=== PATIENT | male | born 1940 | race Caucasian/White ===

== ENCOUNTER 2022-12-04 15:26 | Emergency (ER) | payer BC ==
[~2022-12-04] VITALS: Ht 180.3 cm; Wt 81.2 kg
[2022-12-04 16:21] LABS: BASO % 0.3 % (0.0-1.0); EOS # 0.1 10*3/uL (0.0-0.4); EOS % 1.5 % (1.0-4.0); HEMATOCRIT 40.9 % (42.0-52.0); LYMPH # 1.9 10*3/uL (1.3-4.4); MEAN CELL VOLUME 94.2 fl (80.0-94.0); MEAN CORPUSCULAR HGB 29.7 pg (27.0-31.0); MEAN CORPUSCULAR HGB CONC 31.5 g/dl (33.0-37.0); MONO # 1.1 10*3/uL (0.1-1.0); MONO % 14.2 % (3.0-9.0); NEUT # 4.3 10*3/uL (2.3-7.9); NEUT % 58.2 % (47.0-73.0); PLATELET COUNT AUTOMATED 220 10*3/uL (130-400); RED BLOOD COUNT 4.34 10*6/uL (4.50-5.90); RED CELL DISTRI WIDTH 15.2 % (0-14.5); WHITE BLOOD COUNT 7.4 10*3/uL (4.8-10.8)
[2022-12-04 16:32] LABS: INTERNATIONAL NORM RATIO 1.7 (2.0-3.5)
[2022-12-04 16:41] LABS: BILIRUBIN Negative (Negative); BLOOD Negative (Negative); CLARITY Clear (Clear); COLOR Dark Yellow (Yellow); GLUCOSE Negative (Negative); KETONE Trace (Negative); LEUKO ESTERASE Negative (Negative); NITRITE Negative (Negative); SPECIFIC GRAVITY 1.025 (1.001-1.030)
[2022-12-04 16:46] LABS: ALKALINE PHOSPHATASE 60 U/L (46-116); BUN 16 mg/dl (9-23); CHLORIDE 108 mmol/L (98-107); LIPASE 65 U/L (12-53); POTASSIUM 4.3 mmol/L (3.4-5.1); SGPT/ALT 15 U/L (10-49)
[2022-12-04 17:07] LABS: CALCIUM OXALATE CRYSTALS Trace; MUCOUS 2+
[2022-12-04 17:08] LABS: BACTERIA 1+
[2022-12-04] MEDS ORDERED: ZYRTEC ALLERGY10 MG PO (18:21)
[2022-12-04] MEDS ORDERED: MYLANTA MAXIMU355 M1 PO (18:22)
[2022-12-04] MEDS ORDERED: CLARITIN10 MG PO (18:22)
[2022-12-04] MEDS ORDERED: MILK OF MA400 MG/5 M PO (18:23)
[2022-12-04] MEDS ORDERED: TUSSIN DM 10 M237 M1 PO (18:23)
[2022-12-04] MEDS ORDERED: DULCOLAX5 M1 PO (18:25)
[2022-12-04] MEDS ORDERED: IMODIUM A-D2 M2 PO (18:25)
[2022-12-04] MEDS ORDERED: TYLENOL325 M1 PO (18:26)
[2022-12-04] MEDS ORDERED: B COMPLEX1 EACH PO (18:27)
[2022-12-04] MEDS ORDERED: LOSARTAN POTAS100 M1 PO (18:27)
[2022-12-04] MEDS ORDERED: PRESERVISION A1 EAC3 PO (18:29)
[2022-12-04] MEDS ORDERED: NAMENDA10 MG PO (18:29)
[2022-12-04] MEDS ORDERED: PROSCAR5 M1 PO (18:31)
[2022-12-04] MEDS ORDERED: Coumadin5 MG PO (18:33)
[2022-12-04] MEDS ORDERED: LIPITOR20 MG PO (18:34)
[2022-12-04] MEDS ORDERED: FLOMAX0.4 MG PO (18:35)
[2022-12-04] MEDS ORDERED: BAZA ANTIFUNGA142 GM T (18:36)
[2022-12-04] MEDS ORDERED: DEPAKENE250 M1 PO (18:38)
[2022-12-04] MEDS ORDERED: RIVASTIGMINE T4.5 M1 PO (18:39)
[2022-12-04] MEDS ORDERED: VITAMIN D3125 MC1 PO (18:40)
== END 2022-12-04 17:45 | disposition admitted as inpatient to this hospital (09) ==
LOC: ED 15:26
PROVIDERS: Emergency Medicine
DX: F23 Brief psychotic disorder (principal); Z20.822 Contact with and (suspected) exposure to COVID-19

== ENCOUNTER 2022-12-04 18:01 | Inpatient (IN) | payer OTHER ==
[~2022-12-04] VITALS: Ht 175.2 cm; Wt 81.9 kg
[2022-12-04 17:46] VITALS: BP 104/82
[2022-12-04] MEDS ORDERED: ZYRTEC ALLERGY10 MG PO (18:21)
[2022-12-04] MEDS ORDERED: CLARITIN10 MG PO (18:22)
[2022-12-04] MEDS ORDERED: MYLANTA MAXIMU355 M1 PO (18:22)
[2022-12-04] MEDS ORDERED: TUSSIN DM 10 M237 M1 PO (18:23)
[2022-12-04] MEDS ORDERED: MILK OF MA400 MG/5 M PO (18:23)
[2022-12-04] MEDS ORDERED: DULCOLAX5 M1 PO (18:25)
[2022-12-04] MEDS ORDERED: IMODIUM A-D2 M2 PO (18:25)
[2022-12-04] MEDS ORDERED: TYLENOL325 M1 PO (18:26)
[2022-12-04] MEDS ORDERED: LOSARTAN POTAS100 M1 PO (18:27)
[2022-12-04] MEDS ORDERED: B COMPLEX1 EACH PO (18:27)
[2022-12-04] MEDS ORDERED: NAMENDA10 MG PO (18:29)
[2022-12-04] MEDS ORDERED: PRESERVISION A1 EAC3 PO (18:29)
[2022-12-04] MEDS ORDERED: PROSCAR5 M1 PO (18:31)
[2022-12-04] MEDS ORDERED: Coumadin5 MG PO (18:33)
[2022-12-04] MEDS ORDERED: LIPITOR20 MG PO (18:34)
[2022-12-04] MEDS ORDERED: FLOMAX0.4 MG PO (18:35)
[2022-12-04] MEDS ORDERED: BAZA ANTIFUNGA142 GM T (18:36)
[2022-12-04] MEDS ORDERED: DEPAKENE250 M1 PO (18:38)
[2022-12-04] MEDS ORDERED: RIVASTIGMINE T4.5 M1 PO (18:39)
[2022-12-04] MEDS ORDERED: VITAMIN D3125 MC1 PO (18:40)
[2022-12-04 20:20] VITALS: BP 104/68
[2022-12-05 07:20] LABS: THYROID STIM HORMONE (HS) 2.531 uIU/ml (0.550-4.780); VALPROIC ACID (DEPAKENE) 48.8 ug/ml (50-100)
[2022-12-05 07:24] VITALS: BP 122/72
[2022-12-05 20:00] VITALS: BP 109/68
[2022-12-06 06:44] LABS: INTERNATIONAL NORM RATIO 1.9 (2.0-3.5)
[2022-12-06 07:47] VITALS: BP 127/89
[2022-12-06 20:00] VITALS: BP 102/78
[2022-12-07 06:53] LABS: INTERNATIONAL NORM RATIO 2.3 (2.0-3.5)
[2022-12-07 07:24] VITALS: BP 131/115
[2022-12-07 20:00] VITALS: BP 116/66
[2022-12-08 07:19] LABS: INTERNATIONAL NORM RATIO 2.3 (2.0-3.5)
[2022-12-08 08:00] VITALS: BP 104/55
[2022-12-08 20:00] VITALS: BP 140/76
[2022-12-09 07:20] VITALS: BP 109/67
[2022-12-09 11:37] LABS: BASO % 0.2 % (0.0-1.0); EOS # 0.2 10*3/uL (0.0-0.4); EOS % 2.1 % (1.0-4.0); HEMATOCRIT 40.8 % (42.0-52.0); LYMPH # 1.8 10*3/uL (1.3-4.4); LYMPH % 21.8 % (27.0-41.0); MEAN CELL VOLUME 93.6 fl (80.0-94.0); MEAN CORPUSCULAR HGB CONC 32.1 g/dl (33.0-37.0); MEAN PLATELET VOLUME 8.9 fl (9.6-12.3); MONO # 1.2 10*3/uL (0.1-1.0); MONO % 14.2 % (3.0-9.0); NEUT # 5.1 10*3/uL (2.3-7.9); NEUT % 60.9 % (47.0-73.0); PLATELET COUNT AUTOMATED 195 10*3/uL (130-400); RED BLOOD COUNT 4.36 10*6/uL (4.50-5.90); WHITE BLOOD COUNT 8.4 10*3/uL (4.8-10.8)
[2022-12-09 12:05] LABS: BUN 17 mg/dl (9-23); CHLORIDE 104 mmol/L (98-107); POTASSIUM 4.5 mmol/L (3.4-5.1)
[2022-12-09 12:27] LABS: BILIRUBIN Negative (Negative); BLOOD Negative (Negative); CLARITY Clear (Clear); COLOR Yellow (Yellow); GLUCOSE Negative (Negative); KETONE Negative (Negative); LEUKO ESTERASE Negative (Negative); NITRITE Negative (Negative); SPECIFIC GRAVITY 1.015 (1.001-1.030); UROBILINOGEN 0.2 E.U./dl (0.0-1.0)
[2022-12-10 09:12] VITALS: BP 96/46
[2022-12-10 20:00] VITALS: BP 101/52
[2022-12-11 07:29] VITALS: BP 109/60
[2022-12-11] MEDS ORDERED: RISPERIDONE M-0.5 MG OGT (07:32)
[2022-12-11] MEDS ORDERED: RIVASTIGMINE TAR3 M1 PO (07:32)
[2022-12-11] MEDS ORDERED: DOXYCYCLINE HY100 M3 PO (09:35)
== END 2022-12-11 12:13 | disposition home or self-care (01) | DRG 883 ==
LOC: 3N 18:01
PROVIDERS: Family Medicine; Student in an Organized Health Care Education/Training Program; ADMIT Psychiatry & Neurology Psychiatry; ATTEND Psychiatry & Neurology Psychiatry
DX: F63.81 Intermittent explosive disorder (principal); J18.9 Pneumonia, unspecified organism; E44.0 Moderate protein-calorie malnutrition; F03.911 Unspecified dementia, unspecified severity, with agitation; F23 Brief psychotic disorder; R79.1 Abnormal coagulation profile; D64.9 Anemia, unspecified; I10 Essential (primary) hypertension; E78.5 Hyperlipidemia, unspecified; N40.0 Benign prostatic hyperplasia without lower urinary tract symptoms; Z86.718 Personal history of other venous thrombosis and embolism; Z68.26 Body mass index [BMI] 26.0-26.9, adult; Z79.899 Other long term (current) drug therapy; Z79.01 Long term (current) use of anticoagulants